=== PATIENT | female | born 1955 | race Two or more races ===

== ENCOUNTER → 2017-07-23 | Day surgery (SDC) | payer OTHER ==
[~2017-07-23] MED LIST: BAYER CHEWABLE81 MG PO; CAPTOPRIL25 M1 PO; CHLORTHALIDONE25 MG PO; DESYREL150 M1 PO; GLIMEPIRIDE1 M1 PO; OMEPRAZOLE20 M2 PO; THIORIDAZINE HC25 MG PO; TOFRANIL25 MG PO; ZOLOFT100 MG PO
--- NOTE | ~2017-07-23 | OR ---
Unit #: [id number] #: [id number] Patient: OLY HROVATH [id number] [address] [id number] [id number] MR#: [id number] NAME: OLY HORVATH ROOM: Date of Procedure: 07/23/2017 Admission Date: 07/23/2017 Surgeon: Jimy Devi M.D. : 1955 Attending Physician: Jimy Devi M.D. Primary Care Physician: Bethel Myers M.D. OPERATIVE REPORT PRIMARY CARE PHYSICIAN Bethel Myers M.D. PREOPERATIVE DIAGNOSES The patient has presented with history of dyspepsia, retrosternal ascending heartburn, early satiety, and bloating. In addition, she needs a screening for colon cancer and a screening colonoscopy as needed. PROCEDURES PERFORMED Upper gastrointestinal endoscopy and biopsy as well as colonoscopy with polypectomy. POSTOPERATIVE DIAGNOSES For upper endoscopy: 1. Completely normal examination up to third part of duodenum. A biopsy obtained from the antrum for CLOtest. For colonoscopy: 1. The patient had 4 polyps, one each in the cecum, ascending colon, hepatic flexure, and sigmoid colon. The sigmoid polyp was fulgurated using snare cautery tip. Other 3 polyps were sessile and were removed using snare cautery polypectomy. All the polyps were retrieved and sent for histology. 2. Rest of the examination up to cecum was normal. RECOMMENDATIONS 1. The patient is advised to increase the dose of omeprazole from 20 mg to 40 mg p.o. daily. 2. Consider repeat colonoscopy in 5 years. 3. Follow up results of polyp histology. 4. Follow up in the office in 3 months' time. SEDATION USED MAC. DESCRIPTION OF PROCEDURE Following detailed explanation of potential risks and complications of a colonoscopy, namely perforation, bleeding, and complications related to sedation, the patient was brought to GI lab and laid in the left lateral decubitus position. Lubricated tip of the Olympus video upper endoscope was passed through the bite block into the proximal esophagus under direct vision. The entire esophageal mucosa was examined and appeared normal. Z-line was nicely demarcated, there being no esophagitis or hiatus hernia. Unit #: [id number] #: [id number] Patient: OLY HORVATH The scope was then advanced into the gastric cavity and the latter was insufflated. Mucosa of the fundus, body, and antrum was examined and appeared unremarkable. Pylorus was intubated with visualization of the normal duodenal bulb and second and third part of duodenum. Upon withdrawal and retroflexion, incisura, cardia, and greater curve examined and no additional findings noted. A biopsy obtained from the antrum for CLOtest. The scope was then withdrawn in the distal esophagus. The entire esophageal mucosa was examined all the way up to pharynx. No additional findings noted. The examination table was then turned by 180 degrees and the patient positioned for a colonoscopy. A digital rectal examination was performed, which was normal. Lubricated tip of the Olympus video colonoscope was inserted through the anus and advanced under direct vision. The scope was advanced and passed up to sigmoid into descending colon. No diverticula were noted in this area. The scope tip was then navigated all the way up to cecum with visualization of the ileocecal valve and the appendiceal orifice. Preparation was good with good visualization and photodocumentation was obtained. Successive segments of the colonic mucosa were examined upon withdrawal. Multiple polyps were seen along the way. The first polyp was in the cecum, it was about 1.2 cm in size. A second polyp was in the proximal ascending colon about a 1 cm in size. A third polyp was the hepatic flexure about 1 cm in size. The last polyp was a diminutive polyp in the sigmoid colon. Other than the sigmoid polyp, all other polyps were removed using snare polypectomy, retrieved and sent for histology. The sigmoid polyp was fulgurated using snare cautery tip. No additional polyps noted. The patient did not have any diverticulosis nor any hemorrhoids. The scope was then withdrawn. The patient returned to the recovery area. She tolerated the procedure without any postprocedure complications. Dictated by... Karina Lopez TD: 07/23/2017 16:27 JOB #: [id number] CC: Karina Walker M.D. OPERATIVE REPORT Page 1 of 1 X Jimy Devi MD PROCEDURE OPERATIVE NOTE
== END | disposition home or self-care (01) ==
LOC: COPS 11:36
DX: Z12.11 Encounter for screening for malignant neoplasm of colon (principal); D12.0 Benign neoplasm of cecum; D12.3 Benign neoplasm of transverse colon; I10 Essential (primary) hypertension; E11.9 Type 2 diabetes mellitus without complications; Z88.8 Allergy status to other drugs, medicaments and biological substances; Z91.018 Allergy to other foods; Z79.82 Long term (current) use of aspirin; Z79.899 Other long term (current) drug therapy; Z90.710 Acquired absence of both cervix and uterus
CPT/HCPCS: 82947; 87077; 88305